=== PATIENT | female | born 1955 | race Caucasian/White ===

== ENCOUNTER → 2016-11-05 | Outpatient (CLI) | payer BC ==
[~2016-11-05] VITALS: Ht 165.1 cm; Wt 119.5 kg
[~2016-11-05] MED LIST: ASCA500; ASCO1CAP3 PO; ASPCH81 PO; ASPCH81X PO; ATOR-24 PO; BUPR100T8 PO; DSY100 PO; FERR325T5 PO; FLAXSEED OIL PO; HYZ/10015 PO; LAMO100T16 PO; LAMO150T32 PO; LOSA100T33 PO; METF500T5 PO; METFTAB PO; MTRUNK PO; NIAC500T11 PO; OMEG10007 PO; WLLSR/150 PO
== END | disposition home or self-care (01) ==
LOC: C.NRED 13:45
DX: E66.9 Obesity, unspecified (principal); I10 Essential (primary) hypertension; E88.81 Metabolic syndrome and other insulin resistance

== ENCOUNTER → 2017-05-06 | Day surgery (SDC) | payer BC ==
[2017-04-21 14:35] VITALS: Ht 165.1 cm; Wt 118.2 kg
[~2017-05-06] VITALS: Ht 165.1 cm; Wt 118.2 kg
[~2017-05-06] MED LIST changes: -ASCA500; -ASPCH81 PO; -BUPR100T8 PO; -FLAXSEED OIL PO; -LAMO100T16 PO; +LIDOCAINE HCL 2% 2 ML VIAL (20MG/ML) ONE; -LOSA100T33 PO; -METF500T5 PO; +MIDAZOLAM HCL 1 MG/ML 2ML VIAL ONE; -MTRUNK PO; -NIAC500T11 PO; -OMEG10007 PO; +PROPOFOL IV EMULSION 10 MG/ML 20 ML VIAL IV ONE
--- NOTE | 2017-05-06 13:58 | Endo History and Physical ---
History & Physical Date of Service: May 06, 2017. Chief Complaint: constipation Referring Physician: Dr. Mason Morales History of Present Illness For colonoscopy Past Surgical History Hx Cardiac Surgery: No Hx Internal Defibrillator: No Hx Pacemaker: No Hx Abdominal Surgery: Yes (KHRIS, IRIS BSO) Hx of Implantable Prosthesis: No Hx Post-Op Nausea and Vomiting: No Hx Cancer Surgery: No Hx Thoracic Surgery: No Hx Orthopedic: No Hx Urinary Tract Surgery: No Family History None Social History Smoking Status: Never Smoker Hx Substance Use: No Hx Alcohol Use: No Allergies Coded Allergies: Itraconazole (Verified Allergy, Unknown, HIVES, 04/21/17) Current Medications Reported Home Medications Medications Dose Route/Sig Max Daily Dose Days Date Category Lipitor (Atorvastatin Calcium) 40 Mg Tab 40 Mg PO QPM 04/21/17 Reported Vitamin C (Ascorbic Acid) 500 Mg Cap 1 Tab PO QAM 04/21/17 Reported Trazodone HCl 100 Mg Tab 1-2 Tab PO HS 04/21/17 Reported Ferrous Sulfate 325 Mg Tab 1 Tab PO QAM 04/21/17 Reported Aspirin Chewable (Aspirin) 81 Mg Chew 81 Mg PO QAM 04/21/17 Reported Lamictal (Lamotrigine) 150 Mg Tab 150 Mg PO HS 04/21/17 Reported Wellbutrin Sr (Bupropion Hcl) 150 Mg Tabcr 150 Mg PO QAM 04/21/17 Reported Glucophage Ext Rel (Metformin HCl) 500 Mg Tab 1 Tab PO QAM 90 04/21/17 Reported Hyzaar 25MG/100MG (HCTZ/Losartan Potassium) Tab 1 Tab PO QAM 04/21/17 Reported Vital Signs Weight (Kilograms): 118.18 Height (Feet): 5 Height (Inches): 5 Date Time Temp Pulse Resp B/P (MAP) Pulse Ox O2 Delivery O2 Flow Rate FiO2 05/06/17 13:38 36.5 78 20 158/88 (111) 99 Room Air Physical Exam General Appearance: + obese Respiratory/Chest: Respiratory effort: no dyspnea Cardiovascular: Apical Impulse: not displaced Heart Auscultation: RRR Abdomen: Bowel Sounds: normal Assessment and Plan Constipation for colonoscopy
--- NOTE | 2017-05-06 14:22 | Discharge Instructions ---
Endoscopy Patient Instructions Date / Procedure(s) Performed May 06, 2017. Colonoscopy Allergy Information Coded Allergies: Itraconazole (Verified Allergy, Unknown, HIVES, 04/21/17) Discharge Date / Findings May 06, 2017. Diverticulosis Medication Instructions Stopped Medication(s): last ASA Thursday Restart Stopped Medication(s): resume meds Reported Home Medications Medications Dose Route/Sig Max Daily Dose Days Date Category Lipitor (Atorvastatin Calcium) 40 Mg Tab 40 Mg PO QPM 04/21/17 Reported Vitamin C (Ascorbic Acid) 500 Mg Cap 1 Tab PO QAM 04/21/17 Reported Trazodone HCl 100 Mg Tab 1-2 Tab PO HS 04/21/17 Reported Ferrous Sulfate 325 Mg Tab 1 Tab PO QAM 04/21/17 Reported Aspirin Chewable (Aspirin) 81 Mg Chew 81 Mg PO QAM 04/21/17 Reported Lamictal (Lamotrigine) 150 Mg Tab 150 Mg PO HS 04/21/17 Reported Wellbutrin Sr (Bupropion Hcl) 150 Mg Tabcr 150 Mg PO QAM 04/21/17 Reported Glucophage Ext Rel (Metformin HCl) 500 Mg Tab 1 Tab PO QAM 90 04/21/17 Reported Hyzaar 25MG/100MG (HCTZ/Losartan Potassium) Tab 1 Tab PO QAM 04/21/17 Reported Provider Instructions Activity Restrictions - No exercising or heavy lifting for 24 hours. - Do not drink alcohol the day of the procedure. - Do not drive a car or operate machinery until the day after the procedure. - Do not make any important decisions or sign important papers in 24 hours after the procedure. Following Day: - Return to full activity which may include returning to work/school. Diet Start your diet with liquids and light foods (jello, soup, juice, toast). Then eat your usual diet if not nauseated. Treatment For Common After Affects For mild abdominal pain, bloating, or excessive gas: - Rest - Eat lightly - Lie on right side Follow-Up Information Follow-up with Dr. Mason Morales as scheduled Anesthesia Information What You Should Know You have had a procedure that required some medicine to reduce anxiety and discomfort. This treatment is called moderate sedation. After receiving the treatment, you may be sleepy, but you will be able to breathe on your own. The effects of the treatment may last for several hours. Follow these instructions along with Activity/Diet recommendations noted above: * Do NOT do anything where dizziness or clumsiness would be dangerous. * Rest quietly at home today, then you can be up and about tomorrow. * Have a responsible person stay with you the rest of today. * You may have had an I.V. today. If so, you may take the dressing off later today. Recommendations Call your doctor if: * Trouble breathing * Continuous vomiting for more than 24 hours * Temperature above 101 degrees * Severe abdominal pain or bloating * Pain not relieved by pain medicine ordered * There is increased drainage or redness from any incision * A large amount of rectal bleeding greater than 2-3 tablespoons. (If you had a polyp/s removed or have hemorrhoids, a small amount of blood - from the rectum is to be expected.) * You have any unanswered questions or concerns. IN THE EVENT OF A SERIOUS EMERGENCY, GO TO THE NEAREST EMERGENCY ROOM Your discharge instructions were prepared by provider Eliecer Carpenter. Patient Instructions Signature Page Natalie Simeon Patient (or Guardian) Signature/Date: I have read and understand the instructions given to me by my caregivers. Caregiver/RN/Doctor Signature/Date: The above-named patient and/or guardian has received patient instructions on this date. + Original Patient Signature Page (only) stays with chart. Please make copy for patient.
--- NOTE | 2017-05-06 14:30 | GI REPORT ---
Procedure Date: 05/06/2017 1:59 PM Procedure: Colonoscopy Indications: Constipation Medicines: Midazolam 2 mg IV, Propofol total dose 120 mg IV, Lidocaine 40 mg IV Complications: No immediate complications. Estimated Blood Loss: Estimated blood loss: none. Procedure: Pre-Anesthesia Assessment: - Prior to the procedure, a History and Physical was performed, and patient medications, allergies and sensitivities were reviewed. The patient's tolerance of previous anesthesia was reviewed. - The risks and benefits of the procedure and the sedation options and risks were discussed with the patient. All questions were answered and informed consent was obtained. After I obtained informed consent, the scope was passed under direct vision. Throughout the procedure, the patient's blood pressure, pulse, and oxygen saturations were monitored continuously. The scope was introduced through the anus and advanced to the cecum, identified by appendiceal orifice and ileocecal valve. The colonoscopy was performed without difficulty. The patient tolerated the procedure well. The quality of the bowel preparation was fair. Findings: A few diverticula were found in the sigmoid colon and in the ascending colon. Impression: - Diverticulosis in the sigmoid colon and in the ascending colon. - No specimens collected. Recommendation: - Discharge patient to home (ambulatory). - Continue present medications. - Repeat colonoscopy in 10 years for screening purposes. - Return to primary care physician PRN. Eliecer Carpenter M.D. Eliecer Carpenter MD 05/06/2017 2:30:03 PM This report has been signed electronically. Note Initiated On: 05/06/2017 1:59 PM I attest to the content of the Intraoperative Record and orders documented therein, exceptions below
[2017-05-06 14:40] VITALS: BP 117/87; PULSE 69; O2SAT 94
--- NOTE | 2017-05-06 14:53 | Anesthesiology Progress Note ---
Anesthesia Post Op Note Date & Time May 06, 2017 at 14:53 Vital Signs Pain Intensity: 0 Vital Signs Past 12 Hours Date Time Temp Pulse Resp B/P (MAP) Pulse Ox O2 Delivery O2 Flow Rate FiO2 05/06/17 14:40 69 20 117/87 (97) 94 Room Air 05/06/17 14:25 69 20 115/76 (89) 94 Room Air 05/06/17 13:38 36.5 78 20 158/88 (111) 99 Room Air Notes Mental Status: alert / awake / arousable, participated in evaluation Pt Amnestic to Procedure: Yes Nausea / Vomiting: adequately controlled Pain: adequately controlled Airway Patency, RR, SpO2: stable & adequate BP & HR: stable & adequate Hydration State: stable & adequate Anesthetic Complications: no major complications apparent
== END | disposition home or self-care (01) ==
LOC: C.GI 12:44
PROVIDERS: ATTEND Internal Medicine Gastroenterology
DX: K57.30 Diverticulosis of large intestine without perforation or abscess without bleeding (principal); K59.00 Constipation, unspecified; Z79.82 Long term (current) use of aspirin; Z79.899 Other long term (current) drug therapy

== ENCOUNTER → 2017-07-30 | Outpatient (CLI) | payer BC ==
[~2017-07-30] MED LIST changes: +LAMO150T PO; -LAMO150T32 PO; -LIDOCAINE HCL 2% 2 ML VIAL (20MG/ML) ONE; -MIDAZOLAM HCL 1 MG/ML 2ML VIAL ONE; -PROPOFOL IV EMULSION 10 MG/ML 20 ML VIAL IV ONE
--- NOTE | 2017-07-30 14:26 | MAMMOGRAPHY REPORT ---
BILATERAL DIGITAL SCREENING MAMMOGRAM TOMOSYNTHESIS WITH CAD: 07/30/2017 CLINICAL HISTORY: Routine screening. Patient has no complaints. TECHNIQUE: Breast tomosynthesis in addition to standard 2D mammography was performed. Current study was also evaluated with a Computer Aided Detection (CAD) system. COMPARISON: Comparison is made to exams dated: 04/04/2016 mammogram, 10/09/2014 mammogram, 02/04/2013 m ammogram, 07/22/2011 mammogram, 02/27/2010 mammogram - [facility], and 10/19/2006. BREAST COMPOSITION: The tissue of both breasts is almost entirely fatty. FINDINGS: No suspicious masses, calcifications, or areas of architectural distortion are noted in ei ther breast. There has been no significant interval change compared to prior exams. Scattered bilater al benign-appearing calcifications are not significantly changed. IMPRESSION: ACR BI-RADS CATEGORY 2: BENIGN There is no mammographic evidence of malignancy. A 1 year screening mammogram is recommended. The pa tient will receive written notification of the results. Approximately 10% of breast cancers are not detected with mammography. A negative mammographic report should not delay biopsy if a clinically suggestive mass is present. Connie Osborne M.D. /:07/30/2017 12:21:13 Cascade Operator: Alise Pineda, [facility] letter sent: Normal 1/2 BI-RADS Code: ACR BI-RADS Category 2: Benign
== END | disposition home or self-care (01) ==
LOC: C.MAMM 11:11
DX: Z12.31 Encounter for screening mammogram for malignant neoplasm of breast (principal)

== ENCOUNTER → 2017-08-15 | Outpatient (CLI) | payer BC ==
[~2017-08-15] MED LIST changes: +ASPI81TA28 PO; +LAMO1TAB21 PO; +PHEN37.5 PO; +TOPI50TA24 PO
[2017-08-15 10:58] LABS: HEMATOCRIT 45.2 % (37-47); HEMOGLOBIN 15.1 g/dL (12.0-16.0); MEAN CELL VOLUME 90.6 fL (80-100); MEAN CORPUSCULAR HEMOGLOBIN 30.3 pg (25-34); MEAN CORPUSCULAR HGB CONC 33.4 g/dl (32-36); MEAN PLATELET VOLUME 9.9 fL (7.4-10.4); PLATELET COUNT 207 K/uL (130-400); RED CELL DISTRIBUTION WIDTH CV 12.9 % (11.5-14.5); RED CELL DISTRIBUTION WIDTH SD 42.3 fL (36.4-46.3); WHITE BLOOD COUNT 4.05 K/uL (4.8-10.8)
[2017-08-15 11:39] LABS: ALT/SGPT 36 U/L (12-78); AST/SGOT 17 U/L (15-37); BLOOD UREA NITROGEN 18 mg/dl (7-18); CALCIUM 9.2 mg/dl (8.5-10.1); CARBON DIOXIDE 30 mmol/L (21-32); CREATININE 1.01 mg/dl (0.60-1.20); GLUCOSE 93 mg/dl (70-99); POTASSIUM 3.3 mmol/L (3.5-5.1); SODIUM 136 mmol/L (136-145)
[2017-08-15 11:48] LABS: CHOLESTEROL 127 mg/dl (0-200); LDL CHOLESTEROL CALCULATED 70 mg/dl; TRANSFERRIN 201 mg/dl (200-360)
== END | disposition home or self-care (01) ==
LOC: C.LAB 09:56
DX: I10 Essential (primary) hypertension (principal); E78.5 Hyperlipidemia, unspecified; R00.0 Tachycardia, unspecified

== ENCOUNTER → 2018-03-30 | Outpatient (CLI) | payer BC ==
[~2018-03-30] MED LIST changes: -ASPCH81X PO; -FERR325T5 PO; -LAMO150T PO
[2018-03-30 12:16] LABS: HEMATOCRIT 40.9 % (37-47); HEMOGLOBIN 13.7 g/dL (12.0-16.0); MEAN CELL VOLUME 89.5 fL (80-100); MEAN CORPUSCULAR HGB CONC 33.5 g/dl (32-36); MEAN PLATELET VOLUME 10.2 fL (7.4-10.4); PLATELET COUNT 219 K/uL (130-400); RED CELL DISTRIBUTION WIDTH CV 12.8 % (11.5-14.5); RED CELL DISTRIBUTION WIDTH SD 41.3 fL (36.4-46.3); WHITE BLOOD COUNT 4.89 K/uL (4.8-10.8)
[2018-03-30 12:37] LABS: ALT/SGPT 17 U/L (12-78); AST/SGOT 14 U/L (15-37); BLOOD UREA NITROGEN 21 mg/dl (7-18); CALCIUM 9.4 mg/dl (8.5-10.1); CARBON DIOXIDE 28 mmol/L (21-32); CHOLESTEROL 104 mg/dl (0-200); CREATININE 1.04 mg/dl (0.60-1.20); GLUCOSE 94 mg/dl (70-99); LDL CHOLESTEROL CALCULATED 48 mg/dl; POTASSIUM 3.5 mmol/L (3.5-5.1); SODIUM 138 mmol/L (136-145)
== END | disposition home or self-care (01) ==
LOC: C.LAB 10:33
DX: I10 Essential (primary) hypertension (principal); E78.5 Hyperlipidemia, unspecified